=== PATIENT | male | born 1970 | race Caucasian/White ===

== ENCOUNTER 2017-06-04 04:53 | Emergency (ER) | payer BC, SELFPAY ==
[2017-06-04 04:55] VITALS: BP 139/91; PULSE 71; RESP 16; TEMP 37; O2SAT 96; BMI 34.9
--- NOTE | 2017-06-04 05:12 | CT_ITS ---
STUDY: CT ABDOMEN AND PELVIS WITHOUT CONTRAST REASON FOR EXAM: Male, 46 years old. RADIATION DOSAGE (If Supplied By Facility): CTDIvol = ( 19.92 ) mGy, DLP = ( 1144.87 ) mGycm TECHNIQUE: Transaxial images were obtained from the dome of the diaphragm to the symphysis pubis without oral contrast, and without intravenous contrast. Sagittal and coronal images were reconstructed. Individualized dose optimization techniques were used for this CT. COMPARISON: None. FINDINGS: The lung bases are clear. Fatty infiltration of the liver with no dilated intrahepatic biliary radicles. The gallbladder is normal. There is no pericholecystic fluid collection.. The spleen, pancreas and both adrenals are normal. A 3.5 mm obstructing calculus in the very distal end of the left ureter with subsequent left hydroureteronephrosis. The right kidney is normal The stomach is normal. There is no bowel distention, acute appendicitis or diverticulitis. No abnormally constricting large bowel lesions. The abdominal wall is intact. There is no ascites, free intraperitoneal air or any evidence of epiploic appendagitis. The vascular structures in the retroperitoneum are normal The bones and joints seen are normal with no osteolytic or osteoblastic changes. There is a 1.6 x 0.5 cm left central disc osteophyte complex at the T11-T12 level with impingement on the cord. There are small reactive lymph nodes in the retroperitoneum and mesentery. The urinary bladder is normal.. The prostate is normal There is no inguinal or pelvic adenopathy and there is no inguinal hernia. CT/Abdomen/Pelvis without Cont IMPRESSION: A 3.5 mm obstructing calculus in the distal left ureter with subsequent left hydroureteronephrosis. Fatty infiltration of the liver. A 1.6 x 0.5 cm left central disc osteophyte complex at T11-T12 impinging on the left anterior funiculus of the cord Electronically Signed: Orlin Wisdom, at 6:15 EDT Tel , Service support ,
--- NOTE | 2017-06-04 05:14 | ED.DCSUM_ITS ---
- ER Visit Summary Date of Service: 06/04/17 Chief Complaint: [Left flank pain] History of Present Illness: The patient is a 46 M [resents the emergency department with left flank pain. It started yesterday morning. He has associated nausea. It waxes and wanes. It radiates down his back. He gets sweaty when the pain is severe. Bowel movements have been normal. Urine has been dark but no gross blood. He has no other urinary symptoms. He has had no abdominal surgeries. He takes no medications.] Physical Examination: [] Pressure 139/91 other vitals within normal limits WN WD NAD PERRL EOMI MMM NECK supple and nontender, no masses RRR no murmur rub or gallop, no peripheral edema, symmetric radial pulses CTAB no respiratory distress ABDOMEN is soft and nontender, normal bowel sounds, no distension, no rebound or guarding Left CVA tenderness SKIN is warm and dry no rashes Alert and Oriented x3, CN II-XII in tact, no motor or sensory deficits, gait normal No lymphadenopathy Test Results: [] Emergency Department Course and Treatment: [Patient was given IV fluids morphine and Phenergan. Pain improved mildly. Urinalysis had protein and ketones and blood but no signs of infection. He did have a leukocytosis at 13.1. CT showed a 3.5 mm stone in the distal left ureter. Patient was given additional Toradol and morphine. He will be discharged home with ibuprofen and Percocet and Flomax. He was given precautions for which to return and will follow up with his primary care physician] Treatment Plan: [] Disposition: Discharge [] Impression: [Left urolithiasis] This note was generated with [employer] dictation software. It may contain incorrect words, spelling, and punctuation that were not noted in review of the chart prior to signing ED Disposition - Plan for ED Patient: Chief Complaint: Flank Pain Referrals: Den Naranjo MD [Primary Care Provider] -
[2017-06-04] MEDS: Morphine 4 MG/ML Syringe IV (05:18)
[2017-06-04] MEDS: proMETHazine 25 MG/ML Syringe 12.5 MG IV (05:18)
[2017-06-04] MEDS: 0.9% Normal Saline 1,000 ML 1000 ML IV (05:18)
[2017-06-04 05:22] LABS: Absolute Lymphocyte Count 2.66 X10^3/ul (0.83-4.51); Absolute Neutrophil Count 9.2 X10^3/uL (2.0-7.7); Basophil# 0.02 X10^3/uL; Basophil% 0.2 % (0-1); Eosinophil# 0.04 X10^3/uL; Eosinophils% 0.3 % (0-5); Lymphocyte # 2.66 X10^3/ul (4.0); Lymphocyte % 20.4 % (19-41); Mean Corp Hgb Conc 34.8 g/gl (32-36); Mean Corpuscular Hgb 30.4 pg (27.0-32.0); Mean Corpuscular Volume 87.5 fL (80-94); Mean Platelet Vol. 9.9 fl (6.2-12.0); Monocyte# 1.08 X10^3/uL; Monocyte% 8.3 % (0-10); Neutrophil # 9.22 X10^3/uL (2.7-7.7); Neutrophil % 70.6 % (47-70); POSITIVE COUNT NO; POSITIVE DIFFERENTIAL NO; POSITIVE MORPHOLOGY NO; Platelet Count 250 K/mm3 (150-450); RBC Distribution Width CV 13.5 % (11.6-14.6); RBC Distribution Width SD 42.6 fl (35.1-43.9); Red Blood Count 5.26 M/mm3 (4.6-6.2); White Blood Count 13.1 K/mm3 (4.4-11.0)
[2017-06-04 05:32] LABS: AST(SGOT) 12 U/L (15-37); Alanine Aminotransfer ALT/SGPT 25 U/L (16-61); Albumin, Serum 3.9 g/dL (3.2-5.0); Alkaline Phosphatase 85 U/L (45-117); Anion Gap 9 (5-15); BUN 12 mg/dL (7-18); BUN/Creat Ratio 13.7 RATIO (10-20); Calcium,Total 8.7 mg/dL (8.5-10.1); Chloride 106 mmol/L (98-107); Creatinine, Serum 0.88 mg/dL (0.70-1.30); EST Glomerular Filtration Rate 99 mL/min (>60); Est Glom Filt Rate - Afr Amer 119 mL/min (>60); Estimated Creatinine Clearance 117.28 ml/min; Globulin 3.8 g/dL (2.2-4.2); Glucose 144 mg/dL (74-106); Potassium 3.8 mmol/L (3.5-5.1); Protein, Total 7.7 g/dL (6.4-8.2); Sodium Level 142 mmol/L (136-145)
[2017-06-04 06:16] LABS: Color, Urine Yellow (Yellow); Glucose, Dipstick Normal (Normal); Ketone-Dipstick 5 mg/dl (Negative); Leukocyte Esterase-Dipstick 25 /ul (Negative); Nitrite-Dipstick Negative (Negative); Occult Blood-Urine 250 /ul (Negative); Protein-Dipstick 30 mg/dl (Negative); Urine Bilirubin Dipstick Negative (Negative); Urine Clarity Sl. Cloudy (Clear); Urine Urobilinogen 1 mg/dl (Normal)
--- NOTE | 2017-06-04 06:54 | ED.DEP ---
ED Disposition - Plan for ED Patient: Chief Complaint: Flank Pain Instructions: ED Stone Renal W Colic Prescriptions: Oxycodone HCl/Acetaminophen [Percocet 5/325] 1 tablet PO Q6H PRN PRN 4 Days #14 tablet PRN Reason: Pain Ondansetron [Zofran Odt] 4 mg PO Q8H PRN PRN #10 tablet PRN Reason: Nausea Tamsulosin HCl [Flomax] 0.4 mg PO DAILY #14 capsule Referrals: Den Naranjo MD [Primary Care Provider] - 5-7 Days
[2017-06-04] MEDS: Ketorolac 30 MG/ML Syringe IV (07:13)
[2017-06-04] MEDS: morphine 8 MG/ML Syringe 6 MG IV (07:14)
[2017-06-04 07:33] VITALS: BP 128/88; PULSE 90; RESP 16; O2SAT 96
== END 2017-06-04 07:33 | disposition home or self-care (01) ==
LOC: ED 06:17
PROVIDERS: Emergency Provider Emergency Medicine; Family Provider Family Medicine; PCP Family Medicine
DX: N20.1 Calculus of ureter (principal)
CPT/HCPCS: 74176; 80053; 81002; 85025; 96361; 96374; 96375; 96376; 99284; J7030; A4216

== ENCOUNTER 2018-08-17 08:14 | Emergency (ER) | payer OTHER, SELFPAY ==
[2018-08-17 08:15] VITALS: BP 140/82; PULSE 92; RESP 16; TEMP 35.9; O2SAT 95; BMI 34.7
--- NOTE | 2018-08-17 08:28 | ED.DCSUM_ITS ---
- ER Visit Summary Date of Service: 08/17/18 Chief Complaint: Constipation History of Present Illness: The patient is a 47 M with constipation. He has not had any significant bowel movement for 2 weeks. He has had some small BMs. Last night he tried magnesium citrate. He had some liquid bowel movements which she describes as about a normal days worth of bowel movement. He suspects that he has more stool. He has occasional sharp pains diffusely in his abdomen. None today. He felt weak today. Denies any other associated symptoms. Patient was recently on the Smith diet. Patient had a colonoscopy years ago as part of an IBS work-up. He had predominant diarrhea symptoms. No known history of diverticulosis or diverticulitis. He is not on opioids. In addition to magnesium citrate, he has tried stool softeners, suppositories, and enemas, but they are not helping. He does not feel like he has an impaction. Physical Examination: Afebrile and vital signs unremarkable. Heart regular rate and rhythm. Lungs clear. Abdomen soft, nontender, nondistended, normal bowel sounds. Skin appears normal. Test Results: We will check a KUB and some basic labs given that he feels weak. Results are pending. Emergency Department Course and Treatment: Patient's symptoms are concerning for the patient, but I do not appreciate any red flag features. He said that he felt weak, so I will check some basic labs. We will check a KUB for signs of constipation or obstruction. X-ray showed a moderate stool burden. No sign of obstruction or perforation. CBC and BMP unremarkable. I do not believe the patient has an obstruction or infectious process. We will start the patient on MiraLAX. He will discontinue his other constipation medications. He will increase his fluid and fiber intake. He will follow-up with GI. If the pain localizes, especially left lower quadrant pain, or if he has fevers, vomiting, worsening pain, or any other symptoms, he will return to the ED for evaluation. Treatment Plan: As above Disposition: Discharge Impression: 1. Constipation This note was generated with [employer] software. It may contain incorrect words, spelling, and punctuation that were not noted in review of the chart prior to signing ED Disposition - Plan for ED Patient: Referrals: Den Naranjo MD [Primary Care Provider] -
--- NOTE | 2018-08-17 08:49 | RAD_ITS ---
STUDY: X-RAY - ABDOMEN/PELVIS REASON FOR EXAM: Male, 47 years old. 2 week history of constipation. TECHNIQUE: Single AP view of the abdomen / pelvis. COMPARISON: None. FINDINGS: Normal visualized lung bases. There is a moderate amount of colonic fecal material. The visualized liver, spleen and kidneys are grossly normal in size and morphology. There are calcified phleboliths in the pelvis. There are degenerative changes of the visualized lumbar spine. RAD/Abdomen Single View IMPRESSION: Moderate amount of fecal material is seen in the colon. Electronically Signed: Keven Concepcion, at 9:07 EDT , Service support ,
[2018-08-17 08:53] LABS: Anion Gap 6 (5-15); BUN 10 mg/dL (7-18); Calcium,Total 8.8 mg/dL (8.5-10.1); Chloride 104 mmol/L (98-107); Creatinine, Serum 0.77 mg/dL (0.70-1.30); EST Glomerular Filtration Rate 114 mL/min (>60); Est Glom Filt Rate - Afr Amer 138 mL/min (>60); Estimated Creatinine Clearance 132.59 ml/min; Glucose 118 mg/dL (74-106); Potassium 3.7 mmol/L (3.5-5.1); Sodium Level 138 mmol/L (136-145)
[2018-08-17 08:56] LABS: Absolute Lymphocyte Count 1.98 X10^3/ul (0.83-4.51); Absolute Neutrophil Count 7.2 X10^3/uL (2.0-7.7); Basophil# 0.02 X10^3/uL; Basophil% 0.2 % (0-1); Eosinophil# 0.02 X10^3/uL; Eosinophils% 0.2 % (0-5); Hematocrit 45.5 % (40-54); Hemoglobin 15.7 g/dl (13.0-16.5); Lymphocyte # 1.98 X10^3/ul (4.0); Lymphocyte % 19.8 % (19-41); Mean Corp Hgb Conc 34.5 g/gl (32-36); Mean Corpuscular Hgb 29.5 pg (27.0-32.0); Mean Corpuscular Volume 85.4 fL (80-94); Monocyte# 0.78 X10^3/uL; Monocyte% 7.8 % (0-10); Neutrophil # 7.15 X10^3/uL (2.7-7.7); Neutrophil % 71.7 % (47-70); Platelet Count 375 K/mm3 (150-450); RBC Distribution Width CV 12.9 % (11.6-14.6); RBC Distribution Width SD 40.1 fl (35.1-43.9); Red Blood Count 5.33 M/mm3 (4.6-6.2)
[2018-08-17 08:59] LABS: POSITIVE COUNT NO; POSITIVE DIFFERENTIAL NO; POSITIVE MORPHOLOGY NO
--- NOTE | 2018-08-17 09:31 | ED.DEP ---
ED Disposition - Plan for ED Patient: Instructions: CONSTIPATION (Adult) Prescriptions: Polyethylene Glycol 3350 [Miralax] 17 gm PO DAILY #30 packet Prescription Printed Referrals: Den Naranjo MD [Primary Care Provider] - Vish Hall MD [NON-STAFF] -
== END 2018-08-17 09:54 | disposition home or self-care (01) ==
PROVIDERS: Emergency Provider Emergency Medicine; Family Provider Family Medicine; PCP Family Medicine
DX: K59.00 Constipation, unspecified (principal)
CPT/HCPCS: 74018; 80048; 85025; 99283

== ENCOUNTER 2019-02-04 16:53 | Emergency (ER) | payer OTHER, SELFPAY ==
[2019-02-04 16:54] VITALS: BP 150/82; PULSE 96; RESP 16; TEMP 36.6; O2SAT 97; BMI 34.9
--- NOTE | 2019-02-04 17:59 | ED.DCSUM_ITS ---
- ER Visit Summary Date of Service: 02/04/19 Chief Complaint: Back pain History of Present Illness: The patient is a 48 M with back pain for 5 hours. Patient says it feels like spasms in his mid back on the right. It seemed to come on fairly suddenly. It is worse when he changes positions or goes downsta irs. He slipped a few weeks ago but was feeling well since then. No other injuries. He had prior kidney stones, but this does not feel like his prior pain. Denies any history of heart or lung disease. Denies urinary symptoms. Denies any GI symptoms. Denies rash or fever. Physical Examination: Afebrile and vital signs unremarkable. Alert and oriented. No acute distress. He appears uncomfortable when he tries to move. Heart regular. Lungs clear. Right posterior thorax tender to palpation. No crepitus. Abdomen soft. CVAs nontender. Legs show no edema or tenderness. Test Results: X-rays pending. Emergency Department Course and Treatment: This is likely myofascial pain. Patient was treated with Toradol and Norflex while awaiting results. Will check x-rays. There is nothing to suggest , GI, or vascular pathology. No cardiac symptoms or issues. X-rays unremarkable. Pain is resolved with Toradol and Norflex. Will prescribe Flexeril and Motrin. Follow-up with primary care for recheck. Treatment Plan: As above Disposition: Discharge Impression: 1. Thoracic back pain This note was generated with [employer] dictation software. It may contain incorrect words, spelling, and punctuation that were not noted in review of the chart prior to signing ED Disposition - Plan for ED Patient: Referrals: Den Naranjo MD [Primary Care Provider] -
[2019-02-04] MEDS: Ketorolac 60 MG/2 ML Vial IM (18:22)
[2019-02-04] MEDS: Orphenadrine 60 MG/2 ML Ampul IM (18:23)
--- NOTE | 2019-02-04 18:26 | RAD_ITS ---
STUDY: X-RAY CHEST REASON FOR EXAM: Male, 48 years old. PAIN TO RIGHT POSTERIOR LOWER RIBS AND BACK -- PT LINETTE BACK WHEN SLIPPING ON ICE TWO WEEKS AGO, PAIN INCREASING TODAY TECHNIQUE: PA and lateral views of the chest. COMPARISON: None. FINDINGS: The lungs are clear and expanded. There is no demonstrated pleural abnormality. Normal size heart. Normal mediastinum and zainab. Normal visualized pulmonary arteries. Normal visualized aortic arch and descending thoracic aorta. Normal visualized thoracic spine. Normal visualized ribs, clavicles, and shoulders. There is no demonstrated abnormality of the visualized soft tissue structures of the upper abdomen. RAD/Chest PA and Lateral IMPRESSION: Normal x-ray examination of the chest. Electronically Signed: Spenser Hartley DO at 19:36 EST Tel , Service support ,
--- NOTE | 2019-02-04 19:49 | ED.DEP ---
ED Disposition - Plan for ED Patient: Instructions: BACK SPASM, No Trauma Prescriptions: cycloBENZAPRine HCl [Flexeril] 10 mg PO TID PRN #20 tab PRN Reason: Muscle Spasm Prescription Printed Ibuprofen [Motrin] 800 mg PO TID PRN PRN #20 tab PRN Reason: Pain Or Fever Prescription Printed Referrals: Den Naranjo MD [Primary Care Provider] -
[2019-02-04 20:01] VITALS: BP 127/94; PULSE 66; RESP 17
== END 2019-02-04 20:02 | disposition home or self-care (01) ==
PROVIDERS: Emergency Provider Emergency Medicine; Family Provider Family Medicine; PCP Family Medicine
DX: M54.6 Pain in thoracic spine (principal); Z87.442 Personal history of urinary calculi
CPT/HCPCS: 71046; 96372; 99282